=== PATIENT | female | born 1975 | race Caucasian/White ===

== ENCOUNTER 2016-09-22 06:17 | Day surgery (SDC) | payer BC ==
[2016-09-16 12:49] LABS: HEMATOCRIT 36.3 % (36.0-48.0); HEMOGLOBIN 11.9 g/dL (12.0-16.0)
[2016-09-16 13:14] LABS: BUN (BLOOD UREA NITROGEN) 10 MG/DL (6-23); CALCIUM, SERUM 9.1 MG/DL (8.5-10.4); CHLORIDE, SERUM 102 MMOL/L (96-112); CO2 (CARBON DIOXIDE) 28 MMOL/L (24-34); CREATININE 0.56 MG/DL (0.55-1.02); GFR AFRICAN AMERICAN 134 ML/MIN (>=60); GFR NON AFRICAN AMERICAN 116 ML/MIN (>=60); POTASSIUM, SERUM 4.3 MMOL/L (3.5-5.3); SODIUM, SERUM 140 MMOL/L (135-148)
[2016-09-16 13:16] LABS: GLUCOSE, SERUM 71 MG/DL (60-99)
--- NOTE | ~2016-09-22 | OP ---
Record Of Operation [facility] [address] [place]. [address] NAME: ELUI VALENCIA : 73 STATUS : REG [facility]#: [id number] AGE: 40 ADM/REG DATE : 09/22/16 MR#: [id number] REPORT SERV DATE: 09/22/16 DICTATED BY: KRYSTIAN CLEMENS III DATE: 09/22/16 REPORT STATUS : Draft TRANSCRIBED BY: MODL DATE: 09/22/16 DATE OF PROCEDURE: 09/22/2016 PREOPERATIVE DIAGNOSIS: Right ureteropelvic junction stricture. POSTOPERATIVE DIAGNOSIS: Right ureteropelvic junction stricture. PROCEDURES: Cystoscopy, right retrograde pyelogram, right ureteral stent placement. SURGEON: Krystian Clemens M.D. ANESTHESIA: General. SPECIMEN: Cathed urine for culture. DRAIN: A 6 x 24 cm double double-J ureteral stent. INDICATION: Ms Valencia is a 40-year-old, white female, who has had some right-sided pain. She has a right narrowing in the area of her right UPJ. Consent is obtained for cystoscopy, retrograde pyelogram, and stent placement as this will alleviate her pain. PROCEDURE IN DETAIL: After consent was obtained, the patient was identified. She was taken to the OR and put to sleep. She was positioned in the low lithotomy position and prepped and draped in the usual fashion. A 22-Israeli cystoscope was inserted to the bladder and now the specimen was obtained for culture. The bladder was inspected. It was normal. Pictures were obtained. The right ureteral orifice was then cannulated with a cone-tipped ureteral catheter. Retrograde pyelogram was obtained and it showed a normal caliber ureter up until the area of the UPJ, where it appeared somewhat narrowed. There was some mild hydronephrosis above this area. Images were saved. A Glidewire was passed up the right ureter, over which, a 6 x 24 stent cm double-J ureteral stent was advanced. When in position, the wire was removed. The stent was noted to coil in the renal pelvis, as well as the bladder. The bladder was then drained. The scope was removed. The patient was awakened and taken to recovery in stable condition. PH/MODL Krystian Clemens III, M.D. / [id number]
[~2016-09-22 06:17] MED LIST: NORCO1 TA2 PO; NOVREGPUMP SC
[2016-09-22 09:13] LABS: ASCORBIC ACID (UR NOT ORDER) NEG (NEG); BILIRUBIN, URINE NEGATIVE (NEG); KETONE, URINE TRACE MG/DL (NEG); LEUKOCYTE ESTERASE(NOT OR NEG (NEG); WBC (NOT ORDERED) (RFLEX) 1 (0-5)
[2016-10-06] MEDS ORDERED: CEFT5 PO (14:58)
[2017-03-11] MEDS ORDERED: ENDOCET1 TA3 PO (12:25)
[2017-03-16] MEDS ORDERED: DSS PO (09:25)
[2017-03-16] MEDS ORDERED: V2 PO (09:26)
[2017-04-22] MEDS ORDERED: DIL4TAB PO (13:51)
[2017-04-22] MEDS ORDERED: PROZAC PO (13:52)
== END 2016-09-22 10:40 | disposition home or self-care (01) ==
LOC: SDC 06:17
PROVIDERS: Urology
PROC: BT1D1ZZ Fluoroscopy of Right Kidney, Ureter and Bladder using Low Osmolar Contrast (ICD-10-PCS; 2016-09-22)
PROC: 0T768DZ Dilation of Right Ureter with Intraluminal Device, Via Natural or Artificial Opening Endoscopic (ICD-10-PCS; principal; 2016-09-22 07:45)
DX: N13.0 Hydronephrosis with ureteropelvic junction obstruction (principal); E11.9 Type 2 diabetes mellitus without complications; F41.9 Anxiety disorder, unspecified; Z79.4 Long term (current) use of insulin; Z87.442 Personal history of urinary calculi; Z98.51 Tubal ligation status; Z90.49 Acquired absence of other specified parts of digestive tract; Z98.890 Other specified postprocedural states
CPT/HCPCS: 74420; 80048; 81001; 82962; 84703; 85014; 85018; A9270-GY; C1758; C1769; C2617; J2175; J2250; J2270; J2405; J2550; J3010; Q9967

== ENCOUNTER 2016-10-07 19:17 | Inpatient (IN) | payer BC ==
--- NOTE | ~2016-10-07 | HP ---
History And Physical [place] [address]. [address] NAME: ELIU VALENCIA : 73 STATUS : ADM IN [facility]#: [id number] AGE: 40 ADM/REG DATE : 10/07/16 MR#: [id number] REPORT SERV DATE: 10/08/16 DICTATED BY: PAT FERNANDEZ DATE: 10/08/16 REPORT STATUS : Draft TRANSCRIBED BY: MODL DATE: 10/08/16 DATE OF ADMISSION: 10/07/2016 CHIEF COMPLAINT: A 40-year-old female, presenting with persistent and progressive right flank pain (with history of ureteral stent) and now presenting with uncontrolled blood sugars as well. HISTORY OF PRESENT ILLNESS: The patient's history was obtained through careful interview with patient and , coupled with review of [facility] medical records. The patient had a recent right ureteral stent placed under the care of Dr. Shell on 09/22/2016. It appeared that the stent was placed properly with good followup studies of this, but patient states that she has only had progressive right flank discomfort ever since it was placed. She describes right flank pain, peter like quality, 7 to 9/10 severity. It seems to be exacerbated by urinating and she states that her urine mac "like fire". It was not until today that she developed severe nausea with episodes of vomiting. She describes fevers and chills, a measured fever up to 101.2 at least on two occasions over the last two days, but no fevers on the day of admission. She has had a very poor appetite. Unfortunately, her diabetes has become increasingly difficult to control and over the last several days, it has been in the 200s to 400s. Today, she had two blood sugar readings that were 458 and 490. On the day prior to admission, she was given a prescription for cefuroxime, but vomited up the only dose that she attempted to take. No shortness of breath. No chest pain. She does describe polyuria and polydipsia. REVIEW OF SYSTEMS: Otherwise, a 14-point review of systems was obtained and was negative. PAST MEDICAL HISTORY: 1. Diabetes. 2. Right UPJ stricture with stent placement under the care of Dr. Shell. 3. Fatty liver disease. 4. Migraine headaches. 5. No cardiac disease. 6. No lung disease. PAST SURGICAL HISTORY: History And Physical [address] [place]. [address] NAME: ELIU VALENCIA : 73 STATUS : ADM IN [facility]#: [id number] AGE: 40 ADM/REG DATE : 10/07/16 MR#: [id number] REPORT SERV DATE: 10/08/16 DICTATED BY: PAT FERNANDEZ DATE: 10/08/16 REPORT STATUS : Draft TRANSCRIBED BY: TRISTON DATE: 10/08/16 1. Cholecystectomy. 2. x3. 3. Hysterectomy. ALLERGIES: REGLAN. SOCIAL HISTORY: No tobacco abuse. No alcohol abuse. Is . Lives in [place], [place]. Has three children, ages 9, 15, and 20. 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 FAMILY HISTORY: Diabetes. CURRENT MEDICATIONS: Hydrocodone p.r.n. and insulin pump. PHYSICAL EXAMINATION: VITAL SIGNS: Temperature 98.8, pulse 100, blood pressure 127/92, respiratory rate 16, O2 saturation 98% on room air. GENERAL: Pleasant, cooperative female. She describes pain and distress from her right flank discomfort, but is not in any particular distress otherwise. She does not appear "toxic" by any means. HEENT: Pupils equal, round, and reactive to light. No conjunctival pallor. No scleral icterus. Nares are patent. Oropharynx is clear of obstruction. Very dry mucous membranes with cracking of the tongue. NECK: Trachea midline. No thyromegaly. LYMPH: No cervical lymphadenopathy. No supraclavicular lymphadenopathy. No inguinal lymphadenopathy. RESPIRATORY: Clear to auscultation at bases. No wheezes, no rales, no rhonchi. Normal respiratory effort. CARDIOVASCULAR: Tachycardic, regular rhythm. No murmurs, rubs, or gallops. No extremity edema is appreciated. ABDOMEN: No anterior abdominal pain at all, but the patient does have some right flank tenderness, but I do not appreciate guarding or rebound by exam. She has no hepatosplenomegaly. DERMATOLOGICAL: Warm and dry extremities. No pallor. No cyanosis. PSYCHIATRIC: An irritable affect and mood. Alert and oriented x3, though. LABORATORY DATA: White blood cell count 13.8, hemoglobin 12, hematocrit 37, platelets 553. Sodium 138, potassium 4.6, chloride 96, bicarb 21, BUN 17, creatinine 0.95, glucose 422. Lactic acid 2.6. INR 1.1. Serum acetone level positive. Urinalysis negative for infection. Troponin negative. AST 49, ALT 56, alkaline phosphatase 288. Total bilirubin 0.9. Initial ABG demonstrates pH 7.33, a PaCO2 of 28, a PaO2 of 69, a bicarb of 15. STUDIES: 1. Chest x-ray by my own evaluation shows no acute cardiopulmonary process. 2. EKG by my own evaluation shows sinus rhythm, low QRS voltage. 3. CT scan of the abdomen shows moderate to severe right-sided hydronephrosis with the possibility of malfunctioning right ureteral stent with possible migration distally of History And Physical [address] [address] NAME: ELIU VALENCIA : 73 STATUS : ADM IN [facility]#: [id number] AGE: 40 ADM/REG DATE : 10/07/16 MR#: [id number] REPORT SERV DATE: 10/08/16 DICTATED BY: PAT FERNANDEZ DATE: 10/08/16 REPORT STATUS : Draft TRANSCRIBED BY: TRSITON DATE: 10/08/16 the stent itself. ASSESSMENT AND PLAN: 1. Diabetic ketoacidosis. The patient's pH is currently relatively stable in the 7.33 area, although she has developed acidosis with a bicarb of about 15 on ABG. We will place on an insulin drip IV (although the patient was seen in the emergency department around 6 in the evening because of delays of CT scan and other findings, I did not evaluate the patient until close to about 11 p.m. and because it took a while for the insulin drip to come up to the emergency department, it was not initiated until about 11:30 despite the finding of diabetic ketoacidosis at about 7:30 in the emergency department). We have also started IV fluids. We will place on a standardized diabetic ketoacidosis orders set and allow for careful monitoring. 2. Severe right hydronephrosis. This seems to be a somewhat subacute presentation by the patient's description. I discussed the case and the CT scan findings with Dr. Shell, neurologist and the thought was for the patient to have her diabetic ketoacidosis and possible infection stabilized over the first six or eight hours of admission (overnight) and then to be evaluated first thing in the morning on 10/08/2016 for possible urological procedure. We will check urinalysis and urine culture. 3. Systemic inflammatory response syndrome, likely sepsis. Lactic acid 2.6, tachycardia, white blood cell count of 13.8, and a reported fever of 101.2. We have given initial dose of IV cefepime and also gave IV vancomycin and monitor closely. KPL/MODL Pat Fernandez M.D. / [id number] CC: Yola Blevins M.D. Paul Henson III, M.D.
--- NOTE | ~2016-10-07 | CN ---
Consultation Report [facility] [address] [place]. [address] NAME: ELIU VALENCIA : 73 STATUS : ADM IN [facility]#: [id number] AGE: 40 ADM/REG DATE : 10/07/16 MR#: [id number] REPORT SERV DATE: 10/08/16 DICTATED BY: CHAPITO CLEMENS III DATE: 10/08/16 REPORT STATUS : Draft TRANSCRIBED BY: MODL DATE: 10/08/16 DATE OF CONSULTATION: 10/08/2016 REASON: Right flank pain. HISTORY OF PRESENT ILLNESS: Ms Valencia is a 40-year-old white female with a right UPJ narrowing status post right ureteral stent placement. She is a diabetic and is being admitted at this time with diabetic ketoacidosis. I am asked to see her regarding her flank pain and stent management. PAST MEDICAL HISTORY: Nephrolithiasis and diabetes. PAST SURGICAL HISTORY: Tubal ligation, three C sections, cholecystectomy, and a stent placement. HOME MEDICATIONS: Reviewed. ALLERGIES: SHE IS ALLERGIC TO RITALIN. PHYSICAL EXAMINATION: GENERAL: The patient appears uncomfortable. VITAL SIGNS: She is afebrile. Her vitals are stable. LABORATORY DATA: White blood cell count is elevated at 13.8. BUN and creatinine are 17 and 0.65. Urinalysis is positive for protein and ketones. There are red blood cells and a rare bacteria. It is not obviously inflammatory. CT scan is reviewed. It does look as if a stent is pulled down a little bit and there was some hydronephrosis. ASSESSMENT: Right ureteral stent as above. PLAN: Cystoscopy and stent removal later today. PH/MODL Chapito Clemens III, M.D. / [id number] CC: Yaakov Medeiros M.D.
--- NOTE | ~2016-10-07 | OP ---
Record Of Operation [facility] [address] [place]. [address] NAME: ELIU VALENCIA : 73 STATUS : ADM IN [facility]#: [id number] AGE: 40 ADM/REG DATE : 10/07/16 MR#: [id number] REPORT SERV DATE: 10/08/16 DICTATED BY: CHAPITO CLEMENS III DATE: 10/08/16 REPORT STATUS : Draft TRANSCRIBED BY: MODL DATE: 10/08/16 DATE OF PROCEDURE: 10/08/2016 PREOPERATIVE DIAGNOSIS: Right ureteral stent. POSTOPERATIVE DIAGNOSIS: Right ureteral stent. PROCEDURE: Cystoscopy and stent removal. SURGEON: Chapito Clemens M.D. ANESTHESIA: General. SPECIMEN: Stent for identification. ESTIMATED BLOOD LOSS: None. DRAINS: None. INDICATION: Ms. Valencia is a 40-year-old white female, with a narrow right UPJ. She has had a ureteral stent in place for several weeks. She is admitted now with diabetic ketoacidosis. CT scan shows some hydronephrosis above the stent and it may have shifted. She was rescheduled to have the stent removed tomorrow. Consent is obtained to have it removed today. DESCRIPTION OF PROCEDURE: After consent was obtained, the patient was identified. She was taken to the OR and put to sleep. She was positioned in low lithotomy position and prepped and draped in usual fashion. The 20-Citizen Of [place] cystoscope was made ready and inserted into the bladder using the obturator. The stent was visualized, grasped with the Alligator forceps, and removed. The scope was then used to drain the bladder. The patient was awakened and taken to recovery room in stable condition. PH/MODL Chapito Clemens III, M.D. / [id number] CC: Yola Blevins M.D.
--- NOTE | ~2016-10-07 | DS ---
Discharge Summary [facility] [address] [place]. [address] NAME: ELIU VALENCIA : 73 STATUS : DIS IN PAT#: [id number] AGE: 40 ADM/REG DATE : 10/07/16 MR#: [id number] REPORT SERV DATE: 10/12/16 DICTATED BY: BOAZ ROLON II DATE: 10/11/16 REPORT STATUS : Draft TRANSCRIBED BY: MODL DATE: 10/11/16 ADMISSION DATE: 10/07/2016 DISCHARGE DATE: 10/11/2016 DISCHARGE DIAGNOSES: 1. Diabetic ketoacidosis. 2. Chronic right hydronephrosis secondary to ureteropelvic junction stricture, status post stent removal. 3. Recent urinary tract infection with sepsis. 4. Nausea and vomiting. 5. Chronic right flank pain. 6. Hematuria. CONSULTS: Chapito Shell M.D., with Urology. PROCEDURES: Cystoscopy and right ureteral stent removal by Dr. Shell. BRIEF HISTORY OF PRESENT ILLNESS: The patient is a 40-year-old female with the above history who presented to [facility] due to nausea, vomiting, flank pain, and found to be in DKA. For detailed history and physical examination, please see Dr. Castaneda's note from 10/07/2016. HOSPITAL COURSE: On admission, the patient's blood sugar was in the 400s and CO2 was 12. She was given aggressive IV fluid hydration and started on an insulin drip. She had recent urinary tract infection though UA on admission showed only 1 white blood cell and [address] of the abdomen and pelvis was done which showed moderate to severe right hydronephrosis and hydroureter despite the presence of a right ureteral stent suggesting some degree of stent dysfunction. The stent had migrated slightly distally since retrograde pyelogram, 09/22 with the proximal pigtail located just above the UPJ. Dr. Shell was consulted and subsequently removed the stent. Apparently, the patient has a distal UPJ stricture and the stent that was placed had not opened the narrowing. Dr. Shell is planning on doing an elective excision of the strictured area of ureter and reattaching. However, he wanted the patient to recover from her DKA and recent UTI as well as have her blood sugar under control. The patient continues to have fairly significant right flank pain which she has had for reportedly about six months. This has been only moderately controlled with Belmont. After the stent removal, she did have significant amount of hematuria with clots; however, this has subsequently improved. She has had difficult time with nausea during her stay and her nausea and intermittent vomiting has persisted though the patient has kept down a meal today and says her symptoms are improving and she wants to go home. She has also gotten multiple days of broad-spectrum antibiotics since admission as she had a leukocytosis of 13 which has subsequently come down to about 10. She is afebrile. Vitals are stable and ready for discharge. DISCHARGE MEDICATIONS: 1. NovoLog insulin pump per patient. 2. Belmont 7.5/325 mg p.o. q.4-6 hours p.r.n. pain. 3. Diflucan 150 mg p.o. x1. Discharge Summary [address] [address] NAME: ELIU VALENCIA : 73 STATUS : DIS IN PAT#: [id number] AGE: 40 ADM/REG DATE : 10/07/16 MR#: [id number] REPORT SERV DATE: 10/12/16 DICTATED BY: BOAZ ROLON II DATE: 10/11/16 REPORT STATUS : Draft TRANSCRIBED BY: TRISTON DATE: 10/11/16 DISCHARGE INSTRUCTIONS: The patient will follow with Dr. Shell in one to two weeks. The patient will also follow with her primary care physician, Dr. Dawn in one to two weeks. STEVEN/TRISTON Boaz Rolon II, MD / [id number] CC: MD Jose Jim II, M.D.
[2016-10-07 17:08] LABS: BASOPHILS 0.2 %; BASOPHILS ABSOLUTE 0.03 10/3/uL (0.0-0.16); EOSINOPHILS 0 %; HEMATOCRIT 36.9 % (36.0-48.0); HEMOGLOBIN 11.8 g/dL (12.0-16.0); IMMATURE GRANULOCYTES 0.2 %; IMMATURE GRANULOCYTES ABSOLUTE 0.03 10/3/uL (0.0-0.11); LYMPHOCYTES 4.4 %; LYMPHOCYTES ABSOLUTE 0.61 10/3/uL (0.67-4.30); MEAN CORPUSCULAR HEMOGLOB 27.3 pg (26.0-34.0); MEAN CORPUSCULAR VOLUME 85.2 fL (80-100); MONOCYTES 4.4 %; MONOCYTES ABSOLUTE 0.61 10/3/uL (0.21-1.20); NEUTROPHILS 90.8 %; NEUTROPHILS ABSOLUTE 12.52 10/3/uL (2.02-8.40); PLATELET COUNT 553 10/3/uL (150-400); RBC DISTRIBUTION WIDTH 13.5 % (12.0-16.0); RED CELL COUNT 4.33 10/6/uL (4.0-5.6)
[2016-10-07 17:09] LABS: ER CBC TAT 0 Hrs 13 Mins; MANUAL DIFF NO %; WHITE BLOOD CELLS 13.8 10/3/uL (4.5-10.5)
[2016-10-07 17:15] LABS: INTERNATIONAL NORMAL RATI 1.1 UNITS (-); PROTIME (NOT ORD) 13.7 SEC (12.0-14.5)
[2016-10-07 17:16] LABS: PARTIAL THROMBO TIME 30.6 SEC (22.5-37.2)
[2016-10-07 17:17] LABS: BUN (BLOOD UREA NITROGEN) 17 MG/DL (6-23); CALCIUM, SERUM 9.6 MG/DL (8.5-10.4); CHEST PAIN PROFILE TAT 0 Hrs 21 Mins; CHLORIDE, SERUM 96 MMOL/L (96-112); CREATININE 0.95 MG/DL (0.55-1.02); GFR AFRICAN AMERICAN 86 ML/MIN (>=60); GFR NON AFRICAN AMERICAN 74 ML/MIN (>=60); POTASSIUM, SERUM 4.6 MMOL/L (3.5-5.3); SODIUM, SERUM 138 MMOL/L (135-148); TROPONIN I <0.02 NG/ML (<0.05)
[2016-10-07 17:18] LABS: CO2 (CARBON DIOXIDE) 21 MMOL/L (24-34); GLUCOSE, SERUM 422 MG/DL (60-99)
[~2016-10-07 19:17] MED LIST changes: +CEFT5 PO
[2016-10-07 19:24] LABS: BE (BASE EXCESS) -9.8 MEQ/L (0 +/- 2.5); INSTRUMENT SERIAL # 8087; PCO2 (CO2 TENSION) 28 MMHG (35-45); PO2 (O2 TENSION) 69 MMHG (79-93); pH 7.34 (7.37-7.43)
[2016-10-07 19:25] LABS: ALLENS TEST Pos; CARBOXYHEMOGLOBIN 2.3 % (0-3); HCO3 (ACTUAL BICARBONATE) 14.6 MEQ/L (23-27); METHEMOGLOBIN 0.3 % (0-3); O2 CONTENT 15.2 VOL% (18-24); OPERATOR ID 334499; SAMPLE Arterial
[2016-10-07 20:29] LABS: ACETONE SMALL
[2016-10-07 20:30] LABS: DIRECT BILIRUBIN 0.3 MG/DL (0.0-0.4); SGOT(AST) 49 U/L (5-40); SGPT(ALT) 56 U/L (5-65)
[2016-10-07 20:44] LABS: ALBUMIN 3.8 G/DL (3.5-5.0); ALKALINE PHOSPHATASE 288 U/L (45-117); INDIRECT BILIRUBIN(NOT ORDER) 0.6 MG/DL (0.1-0.9); TOTAL BILIRUBIN 0.9 MG/DL (0-1.2); TOTAL PROTEIN 8.2 G/DL (6.0-8.5)
[2016-10-07 21:05] LABS: ASCORBIC ACID (UR NOT ORDER) NEG (NEG); BILIRUBIN, URINE NEGATIVE (NEG); ER URINALYSIS TAT 0 Hrs 12 Mins; KETONE, URINE 80 MG/DL (NEG); LEUKOCYTE ESTERASE(NOT OR NEG (NEG); NITRITE (URINE) NEG (NEG); WBC (NOT ORDERED) (RFLEX) 1 (0-5)
[2016-10-07] MEDS ORDERED: NOVLOGPUMP SC (21:26)
[2016-10-07 21:27] LABS: LACTATE 2.6 MMOL/L (0.3-2.4)
[2016-10-07] MEDS ORDERED: NORCO1 TA2 PO (21:27)
[2016-10-08 02:31] LABS: BUN (BLOOD UREA NITROGEN) 17 MG/DL (6-23); CHLORIDE, SERUM 110 MMOL/L (96-112); CREATININE 0.82 MG/DL (0.55-1.02); GFR AFRICAN AMERICAN 103 ML/MIN (>=60); GFR NON AFRICAN AMERICAN 89 ML/MIN (>=60); PHOSPHORUS, SERUM 2.3 MG/DL (2.5-4.5); POTASSIUM, SERUM 4.5 MMOL/L (3.5-5.3); SODIUM, SERUM 142 MMOL/L (135-148)
[2016-10-08 02:32] LABS: CALCIUM, SERUM 8.1 MG/DL (8.5-10.4); CO2 (CARBON DIOXIDE) 12 MMOL/L (24-34); GLUCOSE, SERUM 240 MG/DL (60-99)
[2016-10-08 05:20] LABS: BASOPHILS 0.2 %; BASOPHILS ABSOLUTE 0.02 10/3/uL (0.0-0.16); EOSINOPHILS 0 %; HEMOGLOBIN 9.9 g/dL (12.0-16.0); IMMATURE GRANULOCYTES 0.3 %; IMMATURE GRANULOCYTES ABSOLUTE 0.04 10/3/uL (0.0-0.11); LYMPHOCYTES 9.4 %; LYMPHOCYTES ABSOLUTE 1.22 10/3/uL (0.67-4.30); MEAN CORPUS HGB CONC 31.6 g/dL (32.0-36.0); MEAN CORPUSCULAR VOLUME 85.3 fL (80-100); MEAN PLATELET VOLUME 9.5 fL (9.2-13.0); MONOCYTES 7.9 %; MONOCYTES ABSOLUTE 1.03 10/3/uL (0.21-1.20); NEUTROPHILS 82.2 %; NEUTROPHILS ABSOLUTE 10.67 10/3/uL (2.02-8.40); PLATELET COUNT 565 10/3/uL (150-400); RBC DISTRIBUTION WIDTH 13.8 % (12.0-16.0); RED CELL COUNT 3.67 10/6/uL (4.0-5.6)
[2016-10-08 05:22] LABS: HEMATOCRIT 31.3 % (36.0-48.0); MANUAL DIFF NO %
[2016-10-08 05:40] LABS: BUN (BLOOD UREA NITROGEN) 17 MG/DL (6-23); CALCIUM, SERUM 7.9 MG/DL (8.5-10.4); CHLORIDE, SERUM 109 MMOL/L (96-112); CPK 37 U/L (0-200); CREATININE 0.65 MG/DL (0.55-1.02); GFR AFRICAN AMERICAN 128 ML/MIN (>=60); GFR NON AFRICAN AMERICAN 110 ML/MIN (>=60); PHOSPHORUS, SERUM 2.4 MG/DL (2.5-4.5); POTASSIUM, SERUM 4.4 MMOL/L (3.5-5.3); SGOT(AST) 23 U/L (5-40); SGPT(ALT) 40 U/L (5-65); SODIUM, SERUM 138 MMOL/L (135-148); TOTAL PROTEIN 6.7 G/DL (6.0-8.5); TROPONIN I <0.02 NG/ML (<0.05)
[2016-10-08 05:41] LABS: A/G RATIO 0.8 (0.7-1.9); ALBUMIN 2.9 G/DL (3.5-5.0); ALKALINE PHOSPHATASE 212 U/L (45-117); CK-MB 0.6 NG/ML; CO2 (CARBON DIOXIDE) 16 MMOL/L (24-34); GLOBULIN 3.8 G/DL (2.5-4.1); GLUCOSE, SERUM 120 MG/DL (60-99); TOTAL BILIRUBIN 0.4 MG/DL (0-1.2); ULTRASENSITIVE TSH 0.308 MCIU/ML (0.358-3.740)
[2016-10-08 11:42] LABS: BUN (BLOOD UREA NITROGEN) 14 MG/DL (6-23); CALCIUM, SERUM 7.7 MG/DL (8.5-10.4); CHLORIDE, SERUM 109 MMOL/L (96-112); CO2 (CARBON DIOXIDE) 17 MMOL/L (24-34); CREATININE 0.73 MG/DL (0.55-1.02); GFR AFRICAN AMERICAN 119 ML/MIN (>=60); GFR NON AFRICAN AMERICAN 102 ML/MIN (>=60); POTASSIUM, SERUM 3.8 MMOL/L (3.5-5.3); SODIUM, SERUM 140 MMOL/L (135-148)
[2016-10-08 11:43] LABS: GLUCOSE, SERUM 222 MG/DL (60-99); PHOSPHORUS, SERUM 1.4 MG/DL (2.5-4.5)
[2016-10-08 17:14] LABS: BUN (BLOOD UREA NITROGEN) 12 MG/DL (6-23); CALCIUM, SERUM 8.2 MG/DL (8.5-10.4); CHLORIDE, SERUM 108 MMOL/L (96-112); CREATININE 0.62 MG/DL (0.55-1.02); GFR AFRICAN AMERICAN 130 ML/MIN (>=60); GFR NON AFRICAN AMERICAN 112 ML/MIN (>=60); POTASSIUM, SERUM 3.8 MMOL/L (3.5-5.3); SODIUM, SERUM 139 MMOL/L (135-148)
[2016-10-08 17:15] LABS: CO2 (CARBON DIOXIDE) 22 MMOL/L (24-34); GLUCOSE, SERUM 131 MG/DL (60-99); PHOSPHORUS, SERUM 1.9 MG/DL (2.5-4.5)
[2016-10-08 23:21] LABS: CALCIUM, SERUM 7.9 MG/DL (8.5-10.4); CHLORIDE, SERUM 108 MMOL/L (96-112); CO2 (CARBON DIOXIDE) 21 MMOL/L (24-34); CREATININE 0.53 MG/DL (0.55-1.02); GFR AFRICAN AMERICAN 137 ML/MIN (>=60); GFR NON AFRICAN AMERICAN 118 ML/MIN (>=60); POTASSIUM, SERUM 3.9 MMOL/L (3.5-5.3); SODIUM, SERUM 140 MMOL/L (135-148)
[2016-10-08 23:22] LABS: BUN (BLOOD UREA NITROGEN) 8 MG/DL (6-23); GLUCOSE, SERUM 174 MG/DL (60-99); PHOSPHORUS, SERUM 1.2 MG/DL (2.5-4.5)
[2016-10-09 09:00] LABS: ALBUMIN 2.4 G/DL (3.5-5.0); CHLORIDE, SERUM 109 MMOL/L (96-112); CO2 (CARBON DIOXIDE) 17 MMOL/L (24-34); CREATININE 0.44 MG/DL (0.55-1.02); GFR AFRICAN AMERICAN 145 ML/MIN (>=60); GFR NON AFRICAN AMERICAN 125 ML/MIN (>=60); SODIUM, SERUM 139 MMOL/L (135-148)
[2016-10-09 09:01] LABS: BUN (BLOOD UREA NITROGEN) 4 MG/DL (6-23); GLUCOSE, SERUM 137 MG/DL (60-99); PHOSPHORUS, SERUM 1.7 MG/DL (2.5-4.5); POTASSIUM, SERUM 3.9 MMOL/L (3.5-5.3)
[2016-10-09 09:57] LABS: BASOPHILS 0.2 %; BASOPHILS ABSOLUTE 0.02 10/3/uL (0.0-0.16); EOSINOPHILS 0.4 %; EOSINOPHILS ABSOLUTE 0.04 10/3/uL (0.0-0.53); HEMATOCRIT 28.6 % (36.0-48.0); HEMOGLOBIN 9.8 g/dL (12.0-16.0); IMMATURE GRANULOCYTES 0.4 %; IMMATURE GRANULOCYTES ABSOLUTE 0.04 10/3/uL (0.0-0.11); LYMPHOCYTES 10.2 %; LYMPHOCYTES ABSOLUTE 1.08 10/3/uL (0.67-4.30); MEAN CORPUSCULAR HEMOGLOB 28.6 pg (26.0-34.0); MEAN CORPUSCULAR VOLUME 83.4 fL (80-100); MONOCYTES 6.4 %; MONOCYTES ABSOLUTE 0.68 10/3/uL (0.21-1.20); NEUTROPHILS 82.4 %; NEUTROPHILS ABSOLUTE 8.78 10/3/uL (2.02-8.40); PLATELET COUNT 442 10/3/uL (150-400); RBC DISTRIBUTION WIDTH 13.7 % (12.0-16.0); RED CELL COUNT 3.43 10/6/uL (4.0-5.6); WHITE BLOOD CELLS 10.6 10/3/uL (4.5-10.5)
[2016-10-09 09:58] LABS: MANUAL DIFF NO %; MEAN CORPUS HGB CONC 34.3 g/dL (32.0-36.0)
[2016-10-09 10:23] LABS: PLATELET ESTIMATE SLT INC (ADEQUATE); RBC MORPHOLOGY NORM (NORMAL)
[2016-10-09 16:54] LABS: BUN (BLOOD UREA NITROGEN) 1 MG/DL (6-23); CALCIUM, SERUM 7.4 MG/DL (8.5-10.4); CHLORIDE, SERUM 109 MMOL/L (96-112); CREATININE 0.48 MG/DL (0.55-1.02); GFR AFRICAN AMERICAN 141 ML/MIN (>=60); GFR NON AFRICAN AMERICAN 122 ML/MIN (>=60); PHOSPHORUS, SERUM 1.8 MG/DL (2.5-4.5); POTASSIUM, SERUM 3.2 MMOL/L (3.5-5.3); SODIUM, SERUM 142 MMOL/L (135-148)
[2016-10-09 16:55] LABS: CO2 (CARBON DIOXIDE) 27 MMOL/L (24-34); GLUCOSE, SERUM 177 MG/DL (60-99)
[2016-10-10 07:49] LABS: BASOPHILS 0.3 %; BASOPHILS ABSOLUTE 0.02 10/3/uL (0.0-0.16); EOSINOPHILS 0.1 %; EOSINOPHILS ABSOLUTE 0.01 10/3/uL (0.0-0.53); HEMATOCRIT 32.7 % (36.0-48.0); HEMOGLOBIN 10.7 g/dL (12.0-16.0); IMMATURE GRANULOCYTES 0.1 %; IMMATURE GRANULOCYTES ABSOLUTE 0.01 10/3/uL (0.0-0.11); LYMPHOCYTES 13.2 %; LYMPHOCYTES ABSOLUTE 0.99 10/3/uL (0.67-4.30); MANUAL DIFF NO %; MEAN CORPUS HGB CONC 32.7 g/dL (32.0-36.0); MEAN CORPUSCULAR HEMOGLOB 27.6 pg (26.0-34.0); MEAN CORPUSCULAR VOLUME 84.3 fL (80-100); MEAN PLATELET VOLUME 9.3 fL (9.2-13.0); MONOCYTES 5.2 %; MONOCYTES ABSOLUTE 0.39 10/3/uL (0.21-1.20); NEUTROPHILS 81.1 %; NEUTROPHILS ABSOLUTE 6.09 10/3/uL (2.02-8.40); PLATELET COUNT 531 10/3/uL (150-400); RBC DISTRIBUTION WIDTH 13.9 % (12.0-16.0); RED CELL COUNT 3.88 10/6/uL (4.0-5.6); WHITE BLOOD CELLS 7.5 10/3/uL (4.5-10.5)
[2016-10-10 07:58] LABS: BUN (BLOOD UREA NITROGEN) 2 MG/DL (6-23); CALCIUM, SERUM 7.8 MG/DL (8.5-10.4); CHLORIDE, SERUM 105 MMOL/L (96-112); CO2 (CARBON DIOXIDE) 28 MMOL/L (24-34); CREATININE 0.41 MG/DL (0.55-1.02); GFR AFRICAN AMERICAN 149 ML/MIN (>=60); GFR NON AFRICAN AMERICAN 128 ML/MIN (>=60); GLUCOSE, SERUM 111 MG/DL (60-99); SODIUM, SERUM 143 MMOL/L (135-148)
[2016-10-10 17:13] LABS: WBC (NOT ORDERED) (RFLEX) 0 (0-5)
[2016-10-10 17:31] LABS: ASCORBIC ACID (UR NOT ORDER) NEG (NEG); BILIRUBIN, URINE NEGATIVE (NEG); KETONE, URINE NEGATIVE (NEG); LEUKOCYTE ESTERASE(NOT OR NEG (NEG)
[2016-10-11 05:42] LABS: BUN (BLOOD UREA NITROGEN) 2 MG/DL (6-23); CALCIUM, SERUM 8.2 MG/DL (8.5-10.4); CHLORIDE, SERUM 105 MMOL/L (96-112); CO2 (CARBON DIOXIDE) 28 MMOL/L (24-34); CREATININE 0.45 MG/DL (0.55-1.02); GFR AFRICAN AMERICAN 144 ML/MIN (>=60); GFR NON AFRICAN AMERICAN 124 ML/MIN (>=60); GLUCOSE, SERUM 106 MG/DL (60-99); POTASSIUM, SERUM 4.3 MMOL/L (3.5-5.3); SODIUM, SERUM 146 MMOL/L (135-148)
[2016-10-11] MEDS ORDERED: FLUCON150 PO (15:42)
[2017-03-11] MEDS ORDERED: ENDOCET1 TA3 PO (12:25)
[2017-03-16] MEDS ORDERED: DSS PO (09:25)
[2017-03-16] MEDS ORDERED: V2 PO (09:26)
[2017-04-22] MEDS ORDERED: DIL4TAB PO (13:51)
[2017-04-22] MEDS ORDERED: PROZAC PO (13:52)
== END 2016-10-11 16:26 | disposition home or self-care (01) | DRG 638 ==
LOC: ER 19:17 → 6NO 22:09
PROVIDERS: Emergency Medicine; Hospitalist; Internal Medicine; Nurse Practitioner; Urology
PROC: 0TP98DZ Removal of Intraluminal Device from Ureter, Via Natural or Artificial Opening Endoscopic (ICD-10-PCS; principal; 2016-10-08 13:45)
DX: E13.10 Other specified diabetes mellitus with ketoacidosis without coma (principal); N13.0 Hydronephrosis with ureteropelvic junction obstruction; R31.0 Gross hematuria; Z87.440 Personal history of urinary (tract) infections; Z79.4 Long term (current) use of insulin; Z96.41 Presence of insulin pump (external) (internal); Z88.8 Allergy status to other drugs, medicaments and biological substances
CPT/HCPCS: 36600; 71010; 71020; 74176; 80048; 80053; 80069; 80076; 81001; 82009; 82550; 82553; 82805; 82962; 83036; 83605; 83690; 83735; 84100; 84443; 84484; 85014; 85018; 85025; 85610; 85730; 88300; 93005; 96374; 96375; 96376; 99291; A9270-GY; J0692; J1170; J1200; J1956; J2250; J2270; J2405; J2550; J3010; J3370

== ENCOUNTER 2016-11-20 11:04 | Inpatient (IN) | payer BC ==
[2016-11-17 11:22] LABS: HEMATOCRIT 34.6 % (36.0-48.0); HEMOGLOBIN 11.1 g/dL (12.0-16.0)
[2016-11-17 11:33] LABS: BUN (BLOOD UREA NITROGEN) 8 MG/DL (6-23); CALCIUM, SERUM 8.9 MG/DL (8.5-10.4); CHLORIDE, SERUM 98 MMOL/L (96-112); CO2 (CARBON DIOXIDE) 31 MMOL/L (24-34); CREATININE 0.73 MG/DL (0.55-1.02); GFR AFRICAN AMERICAN 119 ML/MIN (>=60); GFR NON AFRICAN AMERICAN 102 ML/MIN (>=60); GLUCOSE, SERUM 279 MG/DL (60-99); POTASSIUM, SERUM 4.1 MMOL/L (3.5-5.3); SODIUM, SERUM 135 MMOL/L (135-148)
[2016-11-17 12:01] LABS: ASCORBIC ACID (UR NOT ORDER) NEG (NEG); BILIRUBIN, URINE NEGATIVE (NEG); KETONE, URINE NEGATIVE (NEG); LEUKOCYTE ESTERASE(NOT OR NEG (NEG); WBC (NOT ORDERED) (RFLEX) 1 (0-5)
--- NOTE | ~2016-11-20 | CN ---
Consultation Report [facility] [address] [place]. [address] NAME: ELIU VALENCIA : 73 STATUS : ADM IN [facility]#: [id number] AGE: 40 ADM/REG DATE : 11/20/16 MR#: [id number] REPORT SERV DATE: 11/21/16 DICTATED BY: KATHLEEN SARGENT DATE: 11/21/16 REPORT STATUS : Draft TRANSCRIBED BY: MODL DATE: 11/21/16 HOSPITALIST CONSULTATION DATE OF CONSULTATION: 11/20/2016 REASON FOR CONSULTATION: Diabetes management per Dr. Dominique. HISTORY OF PRESENT ILLNESS: This is an awake, alert, and oriented, very pleasant, 40-year- old, female who was admitted today to Dr. Fishman for ureteral cystogram including lysis of adhesions and retroperitoneal biopsy. This procedure was completed today, 11/20/2016. We are currently postop day 0. Of note, this patient is type 1 diabetic and has been dependent upon an insulin pump for greater than 30 years. This insulin pump has been discontinued by the Primary Team and the patient was started on sliding scale insulin level 1. Since her return from the procedure today, her blood sugar ranges have been 142 to 336. We have been asked to manage her diabetes during this course of stay. At this time, the patient denies chest pain, palpitations, dyspnea, abdominal pain, nausea, vomiting, diarrhea, and vision disturbances. She does complain of surgical site pain which we will defer treatment to the Primary Team. PAST MEDICAL HISTORY: Significant for 1. Type 1 diabetes mellitus dependent on an insulin pump. 2. Renal calculi. 3. Right hydronephrosis. 4. Migraines. PAST SURGICAL HISTORY: Significant for 1. Ureteral procedure with lysis and retroperitoneal biopsy, 11/20/2016. 2. Tubal ligation, approximately 2006. 3. Three C-sections. 4. Lap iraj, 2001. 5. Cystogram with stent, 09/22/2016. 6. Stent removal, 10/08/2016. The patient follows with Dr. Oz Burns for Endocrinology. ALLERGIES: RITALIN, REGLAN, LEVAQUIN. HOME MEDICATIONS: 1. Hydrocodone APAP 7.5/325 one to two tabs p.o. q.4-6 hours p.r.n. pain. 2. NovoLog per insulin pump with settings per Endocrinology. REVIEW OF SYSTEMS: A complete 10-point review of systems was negative except as per HPI. PHYSICAL EXAMINATION: Consultation Report [address] [place]. [address] NAME: ELIU VALENCIA : 73 STATUS : ADM IN PAT#: [id number] AGE: 40 ADM/REG DATE : 11/20/16 MR#: [id number] REPORT SERV DATE: 11/21/16 DICTATED BY: KATHLEEN SARGENT DATE: 11/21/16 REPORT STATUS : Draft TRANSCRIBED BY: TRISTON DATE: 11/21/16 VITAL SIGNS: T 97.6, P 86, RR 20, BP 121/66, SpO2 97% on 2 L nasal cannula. GENERAL: Well-appearing female, in no acute distress. NEUROLOGIC: Awake, alert, oriented x3 without focal deficit. HEENT: Normocephalic, atraumatic without lymphadenopathy. NECK: Supple. No JVD. LUNGS: CTA in all lung rodriguez with normal respiratory effort. CV: Regular rate and rhythm. S1, S2 auscultated without murmur, rub, gallop or click. ABDOMEN: Soft, round, nontender. Bowel sounds active in all quadrants. No masses. EXTREMITIES: No cyanosis or edema. Cap refill within normal limits. Distal pulses are normal. PSYCH: Normal affect. SKIN: Clean, dry, and intact with mucous membranes pink and moist. LABS: Blood glucose ranges 142-336 with serum glucose at 279 and most recently 226. ASSESSMENT AND PLAN: 1. Type 1 diabetes mellitus. The patient has been treated with insulin pump and settings were reviewed with the patient. We will plan to add Levemir b.i.d. holding for hypoglycemia. We will increase her sliding scale insulin to level 2 and perform q.2 hour Accu-Cheks to adjust for tight blood sugar control. We will plan to restart pump prior to DC once patient is taking p.o. food. 2. Postureteral procedure. This is acute and completed on 11/20/2016. We are currently postop day 0. We will defer to the Primary Team for management of this condition. Thank you for this consult. We are pleased to follow this patient with you. This consult was completed through thorough review of [employer], old records, [facility], current chart as well as thorough interview with the patient and family. FELIPA/TRISTON Kathleen Sargent NP / [id number] CC: MD Jose Mason M.D.
--- NOTE | ~2016-11-20 | PREOPHP ---
PreOp History and Physical [place] [id number] [place]. [address] NAME: ELIU VALENCIA : 73 STATUS : DIS IN PAT#: [id number] AGE: 41 ADM/REG DATE : 11/20/16 MR#: [id number] REPORT SERV DATE: 12/12/16 DICTATED BY: FAITH FISHMAN DATE: 12/12/16 REPORT STATUS : Draft TRANSCRIBED BY: TRISTON DATE: 12/12/16 CHIEF COMPLAINT: Right hydronephrosis. HISTORY OF PRESENT ILLNESS: Ms. Valencia is a very pleasant 40-year-old female with symptomatic right hydronephrosis and evidence of obstruction on MAG3 scan. She has no clear cause for this. She is here for cystoscopy, right ureteroscopy, and robotic ureteral reconstruction to hopefully relieve her hydronephrosis. PAST MEDICAL HISTORY: Notable for hydronephrosis, diabetes, renal calculi, migraines. SURGICAL HISTORY: As detailed above. Tubal ligation, three C-sections, laparoscopic cholecystectomy, cystogram with stent. ALLERGIES: RITALIN, REGLAN, LEVAQUIN. HOME MEDICATIONS: Reviewed and on the chart. REVIEW OF SYSTEMS: A 12-point review of systems was performed. Pertinent positives listed in the HPI. PHYSICAL EXAMINATION: VITAL SIGNS: She is afebrile. Vital signs stable. GENERAL: No acute distress. She appears her stated age. HEENT: Head is normocephalic and atraumatic. LUNGS: Breathing is nonlabored. She is not in respiratory distress. HEART: Pulse is regular in rate and rhythm. ABDOMEN: Soft, nontender, nondistended. She has right CVA tenderness. NEUROLOGIC: She is alert and oriented x3. There is no cyanosis or edema. LABORATORY DATA: No new labs. IMAGING: No new imaging. ASSESSMENT AND PLAN: Right hydronephrosis. We will proceed with the surgery as discussed above. Consents were signed. Risks and benefits discussed in detail. DANDRE/TRISTON Faith Fishman MD / [id number] CC: Faith Fishman MD PreOp History and Physical [address] [address] NAME: ELIU VALENCIA : 73 STATUS : DIS IN PAT#: [id number] AGE: 41 ADM/REG DATE : 11/20/16 MR#: [id number] REPORT SERV DATE: 12/12/16 DICTATED BY: FAITH FISHMAN DATE: 12/12/16 REPORT STATUS : Draft TRANSCRIBED BY: MODL DATE: 12/12/16 Jose Dawn M.D.
--- NOTE | ~2016-11-20 | OP ---
Record Of Operation [facility] [address] [place]. [address] NAME: ELIU VALENCIA : 73 STATUS : ADM IN [facility]#: [id number] AGE: 40 ADM/REG DATE : 11/20/16 MR#: [id number] REPORT SERV DATE: 11/20/16 DICTATED BY: FAITH FISHMAN DATE: 11/20/16 REPORT STATUS : Draft TRANSCRIBED BY: MODL DATE: 11/20/16 DATE OF PROCEDURE: 11/20/2016 TYPE OF OPERATION: 1. Cystourethroscopy. 2. Right retrograde pyelogram. 3. Right ureteroscopy. 4. Right robotic ureterolysis. 5. Right robotic retroperitoneal biopsy. PREOPERATIVE DIAGNOSIS: Right hydronephrosis. POSTOPERATIVE DIAGNOSES: 1. Right hydronephrosis. 2. Extrinsic compression of right ureter. INDICATIONS: Ms. Valencia is a 40-year-old female with history of symptomatic hydronephrosis and a delayed MAG-3 scan. She is here for interrogation and treatment. ANESTHESIA: General. COMPLICATIONS: None. IMPLANTS: 16-Norwegian Malik catheter. SPECIMEN: Retroperitoneal biopsy. NARRATIVE: The patient was brought to the operating room, identified by her wristband. General anesthesia was induced and Ancef was given for preoperative antibiotics. She was placed in the dorsal lithotomy position, prepped and draped in sterile fashion. I began the operation by placing a cystoscope into her urethra and into her bladder. The bladder was inspected. There were no abnormalities. A right retrograde pyelogram was shot, which demonstrated proximal hydronephrosis hooking up her ureter near the UPJ. Ureteroscope was placed over the wire into renal pelvis. The kidney and ureter were inspected. This was consistent with extrinsic compression. There was no intraluminal masses or stricture disease. At this time, the scope was removed. A 16-Norwegian Malik catheter was placed. The balloon was inflated with 10 mL of sterile water. The patient was then placed in the supine position and transferred to the robotic surgical bed. She was placed in modified right flank position, secured to the bed with pads and tapes. She was then reprepped and redraped in sterile fashion. Her abdomen was insufflated to a pressure of 15 mmHg using a Veress needle. Standard X-Y port placement was performed with four 8-mm ports in the right side of the body. There was no adhesions or abnormalities within the abdomen. A 12-mm port was placed in a supraumbilical position for an personal assistant port. The patient was then rotated and the robot was docked. The colon was dropped along the white line of Toldt. This was in the retroperitoneum. There was a dilated ureter, which was immediately identified. Around the ureter, there was abnormal vascular structures that appeared abnormal. I carefully Record Of Operation [address] [address] NAME: ELIU VALENCIA : 73 STATUS : ADM IN PAT#: [id number] AGE: 40 ADM/REG DATE : 11/20/16 MR#: [id number] REPORT SERV DATE: 11/20/16 DICTATED BY: FAITH FISHMAN DATE: 11/20/16 REPORT STATUS : Draft TRANSCRIBED BY: TRISTON DATE: 11/20/16 dissected these structures off the ureter with bipolar cautery and scissors. Once I had successfully removed these vascular structures, the ureter immediately became decompressed and was normally peristalsing. I sent this retroperitoneal biopsy for pathologic analysis. Next, ureterolysis was performed from the pelvic inlet to the UPJ. The ureter was clearly peristalsing and a dilated portion of the ureter was now decompressed. At this time, I felt no reason to perform any sort of reconstruction or to cut the ureter for reconstruction. Hemostasis was obtained. The robot was undocked. I closed the personal assistant port with an 0 Vicryl suture using a Diaz-Aiden device. All ports were removed sequentially. No drain was placed. The skin was closed with a 4-0 Monocryl suture in a subcuticular fashion. Dermabond dressing was used. The patient was awoken from anesthesia and transferred to the recovery room in stable condition. I will remove her Malik in the morning and she will be discharged tomorrow. DANDRE/TRISTON Faith Fishman MD / [id number] CC: MD Jose Mason M.D.
[~2016-11-20 11:04] MED LIST changes: +FLUCON150 PO; +NOVLOGPUMP SC
[2016-11-20 17:04] LABS: BASOPHILS 0.3 %; BASOPHILS ABSOLUTE 0.03 10/3/uL (0.0-0.16); EOSINOPHILS 0 %; HEMATOCRIT 35.6 % (36.0-48.0); HEMOGLOBIN 11.5 g/dL (12.0-16.0); IMMATURE GRANULOCYTES 0.2 %; IMMATURE GRANULOCYTES ABSOLUTE 0.02 10/3/uL (0.0-0.11); LYMPHOCYTES 8.5 %; LYMPHOCYTES ABSOLUTE 0.76 10/3/uL (0.67-4.30); MANUAL DIFF NO %; MEAN CORPUS HGB CONC 32.3 g/dL (32.0-36.0); MEAN CORPUSCULAR HEMOGLOB 27.3 pg (26.0-34.0); MEAN CORPUSCULAR VOLUME 84.6 fL (80-100); MEAN PLATELET VOLUME 9.9 fL (9.2-13.0); MONOCYTES 1.4 %; MONOCYTES ABSOLUTE 0.13 10/3/uL (0.21-1.20); NEUTROPHILS 89.6 %; NEUTROPHILS ABSOLUTE 8.04 10/3/uL (2.02-8.40); PLATELET COUNT 386 10/3/uL (150-400); RBC DISTRIBUTION WIDTH 14.2 % (12.0-16.0); RED CELL COUNT 4.21 10/6/uL (4.0-5.6)
[2016-11-20 17:16] LABS: BUN (BLOOD UREA NITROGEN) 8 MG/DL (6-23); CALCIUM, SERUM 8.5 MG/DL (8.5-10.4); CHLORIDE, SERUM 103 MMOL/L (96-112); CREATININE 0.62 MG/DL (0.55-1.02); GFR AFRICAN AMERICAN 130 ML/MIN (>=60); GFR NON AFRICAN AMERICAN 112 ML/MIN (>=60); GLUCOSE, SERUM 226 MG/DL (60-99); POTASSIUM, SERUM 4.6 MMOL/L (3.5-5.3); SODIUM, SERUM 135 MMOL/L (135-148)
[2016-11-20 17:17] LABS: CO2 (CARBON DIOXIDE) 26 MMOL/L (24-34)
[2016-11-21 08:10] LABS: BASOPHILS 0.3 %; BASOPHILS ABSOLUTE 0.03 10/3/uL (0.0-0.16); EOSINOPHILS 0.1 %; EOSINOPHILS ABSOLUTE 0.01 10/3/uL (0.0-0.53); HEMATOCRIT 34.3 % (36.0-48.0); HEMOGLOBIN 11.1 g/dL (12.0-16.0); IMMATURE GRANULOCYTES 0.2 %; IMMATURE GRANULOCYTES ABSOLUTE 0.02 10/3/uL (0.0-0.11); LYMPHOCYTES 19.2 %; LYMPHOCYTES ABSOLUTE 1.68 10/3/uL (0.67-4.30); MEAN CORPUS HGB CONC 32.4 g/dL (32.0-36.0); MEAN CORPUSCULAR HEMOGLOB 27.5 pg (26.0-34.0); MEAN CORPUSCULAR VOLUME 85.1 fL (80-100); MONOCYTES 8.2 %; MONOCYTES ABSOLUTE 0.72 10/3/uL (0.21-1.20); NEUTROPHILS ABSOLUTE 6.31 10/3/uL (2.02-8.40); PLATELET COUNT 439 10/3/uL (150-400); RBC DISTRIBUTION WIDTH 14.2 % (12.0-16.0); RED CELL COUNT 4.03 10/6/uL (4.0-5.6); WHITE BLOOD CELLS 8.8 10/3/uL (4.5-10.5)
[2016-11-21 08:11] LABS: MANUAL DIFF NO %
[2016-11-21 08:35] LABS: BUN (BLOOD UREA NITROGEN) 10 MG/DL (6-23); CALCIUM, SERUM 8.4 MG/DL (8.5-10.4); CHLORIDE, SERUM 104 MMOL/L (96-112); CO2 (CARBON DIOXIDE) 23 MMOL/L (24-34); CREATININE 0.61 MG/DL (0.55-1.02); GFR AFRICAN AMERICAN 131 ML/MIN (>=60); GFR NON AFRICAN AMERICAN 113 ML/MIN (>=60); GLUCOSE, SERUM 194 MG/DL (60-99); POTASSIUM, SERUM 5.3 MMOL/L (3.5-5.3); SGOT(AST) 31 U/L (5-40); SGPT(ALT) 39 U/L (5-65); SODIUM, SERUM 137 MMOL/L (135-148); TOTAL BILIRUBIN 0.7 MG/DL (0-1.2); TOTAL PROTEIN 6.2 G/DL (6.0-8.5)
[2016-11-21 08:38] LABS: ALBUMIN 3.1 G/DL (3.5-5.0); ALKALINE PHOSPHATASE 182 U/L (45-117); GLOBULIN 3.1 G/DL (2.5-4.1)
[2016-11-22 09:39] LABS: BASOPHILS 0.2 %; BASOPHILS ABSOLUTE 0.01 10/3/uL (0.0-0.16); EOSINOPHILS 0 %; HEMOGLOBIN 9.2 g/dL (12.0-16.0); IMMATURE GRANULOCYTES 0.2 %; IMMATURE GRANULOCYTES ABSOLUTE 0.01 10/3/uL (0.0-0.11); LYMPHOCYTES 35.1 %; LYMPHOCYTES ABSOLUTE 2.04 10/3/uL (0.67-4.30); MEAN CORPUS HGB CONC 32.6 g/dL (32.0-36.0); MEAN CORPUSCULAR HEMOGLOB 27.9 pg (26.0-34.0); MEAN CORPUSCULAR VOLUME 85.5 fL (80-100); MEAN PLATELET VOLUME 9.6 fL (9.2-13.0); MONOCYTES 8.6 %; NEUTROPHILS 55.9 %; NEUTROPHILS ABSOLUTE 3.26 10/3/uL (2.02-8.40); PLATELET COUNT 453 10/3/uL (150-400); RBC DISTRIBUTION WIDTH 14.2 % (12.0-16.0); WHITE BLOOD CELLS 5.8 10/3/uL (4.5-10.5)
[2016-11-22 09:40] LABS: HEMATOCRIT 28.2 % (36.0-48.0); MANUAL DIFF NO %
[2016-11-22 09:54] LABS: CALCIUM, SERUM 8.6 MG/DL (8.5-10.4); CHLORIDE, SERUM 105 MMOL/L (96-112); CREATININE 0.63 MG/DL (0.55-1.02); GFR AFRICAN AMERICAN 129 ML/MIN (>=60); GFR NON AFRICAN AMERICAN 111 ML/MIN (>=60); SODIUM, SERUM 140 MMOL/L (135-148)
[2016-11-22 09:57] LABS: BUN (BLOOD UREA NITROGEN) 6 MG/DL (6-23); CO2 (CARBON DIOXIDE) 30 MMOL/L (24-34); GLUCOSE, SERUM 188 MG/DL (60-99); POTASSIUM, SERUM 4.1 MMOL/L (3.5-5.3)
[2016-11-22] MEDS ORDERED: DSS PO (12:55)
[2017-03-11] MEDS ORDERED: ENDOCET1 TA3 PO (12:25)
[2017-03-16] MEDS ORDERED: DSS PO (09:25)
[2017-03-16] MEDS ORDERED: V2 PO (09:26)
[2017-04-22] MEDS ORDERED: DIL4TAB PO (13:51)
[2017-04-22] MEDS ORDERED: PROZAC PO (13:52)
== END 2016-11-22 13:25 | disposition home or self-care (01) | DRG 660 ==
LOC: SDC/OF 11:04 → PACU 16:41 → 4SO 18:08
PROVIDERS: Urology
DX: N13.0 Hydronephrosis with ureteropelvic junction obstruction (principal); E10.649 Type 1 diabetes mellitus with hypoglycemia without coma; N13.5 Crossing vessel and stricture of ureter without hydronephrosis; Z79.4 Long term (current) use of insulin; Z96.41 Presence of insulin pump (external) (internal); Z88.1 Allergy status to other antibiotic agents; Z88.8 Allergy status to other drugs, medicaments and biological substances; Z79.891 Long term (current) use of opiate analgesic
CPT/HCPCS: 36415; 74176; 74420; 80048; 80053; 81001; 82947; 82962; 84703; 85014; 85018; 85025; 86850; 86900; 86901; 88307; A9270-GY; C1758; J0690; J1170; J1885; J2250; J2270; J2405; J2710; J2795; J3010; Q9967